=== PATIENT | male | born 1990 | race American Indian/Alaskan Native ===

== ENCOUNTER 2016-10-10 06:41 | Emergency (ER) | payer SELFPAY ==
[2016-10-10] MEDS ORDERED: ONDANSETRON 4 MG ORAL DISINTEGRATING TAB (S0181) As Ordered ONE (07:24)
[2016-10-10] MEDS ORDERED: IPRATROPIUM 0.5MG/ALBUTEROL 2.5MG INH SOL UD 3ML (DUONEB)(J7620) As Ordered ONE ×2 (07:47→07:48)
--- NOTE | 2016-10-10 07:52 | REP ---
Chest x-ray: Two views. History: Cough. Comparison study: No comparisons . Findings: The lungs are well inflated and free of infiltrate. The pleural angles are sharp. The heart size is normal. Pulmonary vasculature is not increased. No significant bony abnormality is seen. Impression: Negative chest x-ray. Signed by Burt Hadley MD 10/10/2016 07:43 A
[2016-10-10] MEDS ORDERED: AUGMENTIN 875 MG TAB As Ordered ONE (08:05)
--- NOTE | 2016-10-10 08:36 | EDDOCDS ---
Nurse's Notes [facility] Name: Kwesi Andrews Age: 25 yrs Sex: Male : 1990 Arrival Date: 10/10/2016 Time: 06:41 Bed I2 / M2 Private MD: Diagnosis: Acute sinusitis;Acute bronchitis Presentation: 10/10 06:57 Presenting complaint: Patient states: has had 'the really bad flu' for 3 to 4 days. kr3 Yesterday began feeling dizzy and light headed. Adult Sepsis Screening: The patient does not have new or worsening altered mentation. Patient's respiratory rate is less than 22. Systolic blood pressure is greater than 100. Patient has a qSOFA score of 0- Negative Sepsis Screen. Suicide/Homicide risk assessment- the patient denies having any suicidal and/or homicidal ideations and does not present with any other emotional, behavioral or mental health complaints. 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 Transition of care: patient was not received from another setting of care. 06:57 Acuity: KEM Level 4 kr3 06:57 Method Of Arrival: Walkin/Carried/Asstd kr3 Triage Assessment: 06:58 General: Appears in no apparent distress, comfortable, Behavior is cooperative. Pain: kr3 Location: all over body Pain currently is 7 out of 10 on a pain scale. Pt Declines HIV testing. EENT: Reports nasal congestion. Respiratory: Reports cough that is. GI: Reports cramping, nausea, vomiting. Derm: Skin is normal. Historical: - Allergies: no known allergies; - Home Meds: 1. none - PMHx: none; - PSHx: none; - Social history: Smoking status: Patient uses tobacco products, current every day smoker. No barriers to communication noted, The patient speaks fluent Indian, Speaks appropriately for age. - Family history: Not pertinent. - : The pt / caregiver states he / she is not on anticoagulants. Home medication list is obtained from the patient. - Exposure Risk Screening:: None identified. Screenin:14 Screening information is obtained from the patient. Fall risk: No risks identified. js13 Assistance ADL's: requires no assistance with activities of daily living. Abuse/DV Screen: The patient / caregiver reports he/she is: not in a situation that causes fear, pain or injury. Nutritional screening: No deficits noted. Advance Directives: There is no active DNR order. home support is adequate. Assessment: 07:15 General: Appears in no apparent distress, Behavior is appropriate for age, cooperative. js13 Pain: Denies pain. Neurological: Level of Consciousness is awake, alert. Respiratory: Airway is patent Respiratory effort is even, unlabored, Respiratory pattern is regular, symmetrical. Derm: Skin is pink, warm & dry. 08:34 Reassessment: Patient appears in no apparent distress at this time. Patient states kr3 feeling better. Respiratory: Respiratory effort is even, unlabored. Vital Signs: 06:58 BP 154 / 85; Pulse 69; Resp 16; Temp 98.3(O); Pulse Ox 98% on R/A; Weight 113.4 kg (R); kr3 Height 5 ft. 10 in. (177.80 cm) (R); 08:33 BP 179 / 84; Pulse 78; Resp 16; Temp 96.9(O); Pulse Ox 96% on R/A; kr3 06:58 Body Mass Index 35.87 (113.40 kg, 177.80 cm) kr3 Vitals: 06:58 Log In Time: October 10, 2016 at 06:36. kr3 07:14 Strep Screen is obtained and tested: Negative, a GATSNEG culture is ordered in [facility] and sent. ED Course: 06:42 Patient visited by Christy Fierro. gjb 06:42 Patient moved to Waiting gjb 06:58 Triage Initiated kr3 07:02 Patient moved to I2 / M2 kr3 07:06 [facility] ef1 07:06 Mary Rodríguez MD is Attending Physician. ef1 07:06 Patient visited by Jo Lu PA-C. ef1 07:07 -Influenza A&B Rapid Antigen - Nose Sent. js13 07:14 The patient / caregiver is instructed regarding the plan of care and ED course. js13 07:14 No IV's were initiated during this patient's visit. No procedures done that require js13 assistance. 07:16 Patient visited by Elsy Suárez RN. js13 07:16 Pt greeted and oriented to ED. Patient advised of names of staff involved in care, jam1 location of call darnell, wait times and NPO status. Patient has correct armband on for positive identification. Bed in low position. Call light in reach. Side rails up X 1. Door closed. 07:17 GATS (NEGATIVE STREP SCREEN) Sent. js13 07:40 Patient visited by Jo Lu PA-C. ef1 08:17 Chest, 2 View (pa\E\lat) Returned. EDMS 08:18 Patient visited by Jo Lu PA-C. ef1 08:27 [facility] is Referral Physician. ef1 Administered Medications: 07:25 Drug: Ondansetron ODT 4 mg [ondansetron 4 mg disintegrating tablet (1 tabs)] Route: PO; js13 07:46 Drug: Albuterol-Ipratropium 1 neb [ipratropium-albuterol 0.5 mg-3 mg(2.5 mg base)/3 mL ac1 nebulization soln (1 neb)] Route: Nebulizer; 07:55 Follow up: bs clear ac1 07:57 Drug: Albuterol-Ipratropium 1 neb [ipratropium-albuterol 0.5 mg-3 mg(2.5 mg base)/3 mL ac1 nebulization soln (1 neb)] Route: Nebulizer; 08:02 Follow up: bs clear ac1 08:10 Drug: Albuterol-Ipratropium 1 neb [ipratropium-albuterol 0.5 mg-3 mg(2.5 mg base)/3 mL ac1 nebulization soln (1 neb)] Route: Nebulizer; 08:14 Follow up: bs clear ac1 08:13 Drug: Amoxicillin-Clavulanate 1 tabs [amoxicillin 875 mg-potassium clavulanate 125 mg js13 tablet (1 tabs)] Route: PO; Intake: RT: 07:49 Initial Med Neb Given as ordered Patient was instructed and evaluated on procedure. ac1 07:54 Respiratory: Breath sounds are clear bilaterally. ac1 08:04 Subsequent Med Neb Given as ordered. ac1 08:15 Respiratory: Breath sounds are clear bilaterally. ac1 Order Results: Lab Order: -Influenza A&B Rapid Antigen - Nose; SPEC'M 10/10/16 07:06 Test: INFLUENZA A RAPID SCR by ICA; Value: INFLUENZA A RESULTS NEGATIVE; Status: F Test: INFLUENZA A RAPID SCR by ICA; Value: Comments:; Status: F Test: INFLUENZA B RAPID SCR by ICA; Value: INFLUENZA B RESULTS NEGATIVE; Status: F Test Note: ; The Influenza test is a direct rapid immunoassay for the qualitative detection of Influenza viral antigen. Cell culture (Viral Culture) testing should be considered to confirm NEGATIVE results and to assist in detecting other viruses that can provide similar clinical symptoms. Please contact the lab within 24 hours ([phone]) if confirmatory testing is desired. Radiology Order: Chest, 2 View (pa\E\lat) Test: Chest, 2 View (pa\E\lat) REASON FOR EXAMINATION: Cough; Chest x-ray: Two views.; ; History: Cough.; ; Comparison study: No comparisons .; ; Findings: The lungs are well inflated and free of infiltrate. The pleural; angles are sharp. The heart size is normal. Pulmonary vasculature is not; increased. No significant bony abnormality is seen.; ; Impression:; ; Negative chest x-ray.; ; ; Signed by; Burt Hadley MD 10/10/2016 07:43 A; Outcome: 08:27 Discharge ordered by Provider. ef1 08:34 Discharge Assessment: patient administered narcotics - no. The following High Risk kr3 Discharge criteria are identified: None. Discharged to home ambulatory. Condition: stable. Discharge instructions given to patient, Instructed on discharge instructions, follow up and referral plans. medication usage, Demonstrated understanding of instructions, medications, Pt was receptive of discharge instructions/ teaching. Prescriptions given X 4. No special radiology studies were completed. Property sent home with patient. 08:34 Patient left the ED. kr3 Signatures: Dispatcher [employer] EDMS Eva Barron, LATHE OPERATOR CONTACT LENS LATHE OPERATOR CONTACT LENS jam1 Kaci Overton,RT RT ac1 Alexa Castrejon,RN RN kr3 Jo Lu, PA-C PA-C ef1 Elsy Suárez,RN RN js13 Christy Fierro Corrections: (The following items were deleted from the chart) 07:58 07:54 Initial Med Neb Given as ordered Patient was instructed and evaluated on ac1 procedure ac1 MTDD
--- NOTE | 2016-10-10 08:36 | EDDOCDS ---
Physician Documentation [facility] Name: Kwesi Andrews Age: 25 yrs Sex: Male : 1990 Arrival Date: 10/10/2016 Time: 06:41 Bed I2 / M2 Private MD: Disposition: 10/10/16 08:27 Discharged to Home/Self Care. Impression: Acute sinusitis, Acute bronchitis. - Condition is Stable. - Discharge Instructions: Sinusitis, Kpdb-[id number], Acute Bronchitis, Piyd-zw-Mamz. - Prescriptions for Augmentin 875- 125 mg Oral Tablet - take 1 tablet by ORAL route every 12 hours for 10 days; 20 tablet. Ibuprofen 800 mg Oral Tablet - take 1 tablet by ORAL route every 8 hours As needed take with food; 30 tablet. Prednisone 20 mg Oral Tablet - take 3 tablet by ORAL route once daily for 5 days; 15 tablet. Claritin 10 mg Oral Tablet - take 1 tablet by ORAL route once daily As needed; 30 tablet. Mucinex 600 mg - take 1 tablet by ORAL route 2 times per day; 30 tablet. Albuterol Sulfate 90 mcg/actuation Inhalation HFA Aerosol Inhaler - inhale 2 puff by INHALATION route every 4 hours As needed; 1 Inhaler. - Referral List Call for Appointment, Medication Reconciliation, Local Pharmacy Hours form. - [facility] ; When: 1 - 2 days; Reason: Recheck today's complaints, Continuance of care. Follow up: Emergency Department; Reason: Worsening of conditions. - Problem is new. - Symptoms have improved. Historical: - Allergies: no known allergies; - Home Meds: 1. none - PMHx: none; - PSHx: none; - Social history: Smoking status: Patient uses tobacco products, current every day smoker. No barriers to communication noted, The patient speaks fluent Croatian, Speaks appropriately for age. - Family history: Not pertinent. - : The pt / caregiver states he / she is not on anticoagulants. Home medication list is obtained from the patient. - Exposure Risk Screening:: None identified. Vital Signs: 10/10 06:58 BP 154 / 85; Pulse 69; Resp 16; Temp 98.3(O); Pulse Ox 98% on R/A; Weight 113.4 kg / kr3 250 lbs (R); Height 5 ft. 10 in. (177.80 cm) (R); 08:33 BP 179 / 84; Pulse 78; Resp 16; Temp 96.9(O); Pulse Ox 96% on R/A; kr3 06:58 Body Mass Index 35.87 (113.40 kg, 177.80 cm) kr3 MDM: 07:05 -Influenza A&B Rapid Antigen - Nose Ordered. EDMS 07:06 Strep Screen, Nursing ordered. ef1 07:15 GATS (NEGATIVE STREP SCREEN) Ordered. EDMS 07:23 Ondansetron ODT Oral Disintegrating Tablet 4 mg PO once ordered. ef1 07:23 Albuterol-Ipratropium 1 neb Nebulizer every 20 minutes x3 ordered. ef1 07:23 Call Respiratory ordered. ef1 07:23 Chest, 2 View (pa\E\lat) Ordered. EDMS 07:23 Call Respiratory complete. js13 07:37 Financial registration complete. lg 07:40 -Influenza A&B Rapid Antigen - Nose Reviewed. ef1 07:55 Amoxicillin-Clavulanate 875 mg 1 tabs PO once ordered. ef1 Administered Medications: 07:25 Drug: Ondansetron ODT 4 mg [ondansetron 4 mg disintegrating tablet (1 tabs)] Route: PO; js13 07:46 Drug: Albuterol-Ipratropium 1 neb [ipratropium-albuterol 0.5 mg-3 mg(2.5 mg base)/3 mL ac1 nebulization soln (1 neb)] Route: Nebulizer; 07:55 Follow up: bs clear ac1 07:57 Drug: Albuterol-Ipratropium 1 neb [ipratropium-albuterol 0.5 mg-3 mg(2.5 mg base)/3 mL ac1 nebulization soln (1 neb)] Route: Nebulizer; 08:02 Follow up: bs clear ac1 08:10 Drug: Albuterol-Ipratropium 1 neb [ipratropium-albuterol 0.5 mg-3 mg(2.5 mg base)/3 mL ac1 nebulization soln (1 neb)] Route: Nebulizer; 08:14 Follow up: bs clear ac1 08:13 Drug: Amoxicillin-Clavulanate 1 tabs [amoxicillin 875 mg-potassium clavulanate 125 mg js13 tablet (1 tabs)] Route: PO; Signatures: Dispatcher [employer] Jerry Ricketts, Jamar Reg lg Alexa Castrejon,RN RN kr3 Jo Lu PA-C PA-C ef1 Elsy Suárez RN RN js13 Kaci Overton RT ac1 MTDD
--- NOTE | 2016-10-12 09:35 | EDDOCDS ---
Physician Documentation [facility] Name: Kwesi Andrews Age: 25 yrs Sex: Male : 1990 Arrival Date: 10/10/2016 Time: 06:41 Bed I2 / M2 Private MD: Disposition: 10/10/16 08:27 Discharged to Home/Self Care. Impression: Acute sinusitis, Acute bronchitis. - Condition is Stable. - Discharge Instructions: Sinusitis, Pqfr-nf-Iqyj, Acute Bronchitis, Xqos-ys-Uonk. - Prescriptions for Augmentin 875- 125 mg Oral Tablet - take 1 tablet by ORAL route every 12 hours for 10 days; 20 tablet. Ibuprofen 800 mg Oral Tablet - take 1 tablet by ORAL route every 8 hours As needed take with food; 30 tablet. Prednisone 20 mg Oral Tablet - take 3 tablet by ORAL route once daily for 5 days; 15 tablet. Claritin 10 mg Oral Tablet - take 1 tablet by ORAL route once daily As needed; 30 tablet. Mucinex 600 mg - take 1 tablet by ORAL route 2 times per day; 30 tablet. Albuterol Sulfate 90 mcg/actuation Inhalation HFA Aerosol Inhaler - inhale 2 puff by INHALATION route every 4 hours As needed; 1 Inhaler. - Referral List Call for Appointment, Medication Reconciliation, Local Pharmacy Hours form. - [facility]: [facility] ; When: 1 - 2 days; Reason: Recheck today's complaints, Continuance of care. Follow up: Emergency Department; Reason: Worsening of conditions. - Problem is new. - Symptoms have improved. Historical: - Allergies: no known allergies; - Home Meds: 1. none - PMHx: none; - PSHx: none; - Social history: Smoking status: Patient uses tobacco products, current every day smoker. No barriers to communication noted, The patient speaks fluent Azeri, Speaks appropriately for age. - Family history: Not pertinent. - : The pt / caregiver states he / she is not on anticoagulants. Home medication list is obtained from the patient. - Exposure Risk Screening:: None identified. Vital Signs: 10/10 06:58 BP 154 / 85; Pulse 69; Resp 16; Temp 98.3(O); Pulse Ox 98% on R/A; Weight 113.4 kg / kr3 250 lbs (R); Height 5 ft. 10 in. (177.80 cm) (R); 08:33 BP 179 / 84; Pulse 78; Resp 16; Temp 96.9(O); Pulse Ox 96% on R/A; kr3 06:58 Body Mass Index 35.87 (113.40 kg, 177.80 cm) kr3 MDM: 07:05 -Influenza A&B Rapid Antigen - Nose Ordered. EDMS 07:06 Strep Screen, Nursing ordered. ef1 07:15 GATS (NEGATIVE STREP SCREEN) Ordered. EDMS 07:23 Ondansetron ODT Oral Disintegrating Tablet 4 mg PO once ordered. ef1 07:23 Albuterol-Ipratropium 1 neb Nebulizer every 20 minutes x3 ordered. ef1 07:23 Call Respiratory ordered. ef1 07:23 Chest, 2 View (pa\E\lat) Ordered. EDMS 07:23 Call Respiratory complete. js13 07:37 Financial registration complete. lg 07:40 -Influenza A&B Rapid Antigen - Nose Reviewed. ef1 07:55 Amoxicillin-Clavulanate 875 mg 1 tabs PO once ordered. ef1 08:46 [facility] [place] Payment Agreement was scanned into [employer] and attached to record. lg 12:39 T-Sheet-- Draft Copy was scanned into [employer] and attached to record. klr 14:09 Radiology Report was scanned into [employer] and attached to record. gb Administered Medications: 07:25 Drug: Ondansetron ODT 4 mg [ondansetron 4 mg disintegrating tablet (1 tabs)] Route: PO; js13 07:46 Drug: Albuterol-Ipratropium 1 neb [ipratropium-albuterol 0.5 mg-3 mg(2.5 mg base)/3 mL ac1 nebulization soln (1 neb)] Route: Nebulizer; 07:55 Follow up: bs clear ac1 07:57 Drug: Albuterol-Ipratropium 1 neb [ipratropium-albuterol 0.5 mg-3 mg(2.5 mg base)/3 mL ac1 nebulization soln (1 neb)] Route: Nebulizer; 08:02 Follow up: bs clear ac1 08:10 Drug: Albuterol-Ipratropium 1 neb [ipratropium-albuterol 0.5 mg-3 mg(2.5 mg base)/3 mL ac1 nebulization soln (1 neb)] Route: Nebulizer; 08:14 Follow up: bs clear ac1 08:13 Drug: Amoxicillin-Clavulanate 1 tabs [amoxicillin 875 mg-potassium clavulanate 125 mg js13 tablet (1 tabs)] Route: PO; Signatures: Dispatcher [employer] EDMS Leighann Stephen, Reg Reg gb Jerry Whitehead, Reg Reg lg Alexa Castrejon,RN RN kr3 Jo Lu, PA-C PA-C ef1 Elsy Suárez RN RN js13 Stella Sood klr Kaci Overton RT ac1 The chart was reviewed and I authenticate all verbal orders and agree with the evaluation and treatment provided.Attachments: 08:46 [facility] [place] Payment Agreement lg 12:39 T-Sheet-- Draft Copy klr Chart Complete MTDD
--- NOTE | 2016-10-12 09:35 | EDDOCDS ---
[facility]ation [facility] Name: Kwesi Andrews Age: 25 yrs Sex: Male : 1990 Arrival Date: 10/10/2016 Time: 06:41 Bed I2 / M2 Private MD: Disposition: 10/10/16 08:27 Discharged to Home/Self Care. Impression: Acute sinusitis, Acute bronchitis. - Condition is Stable. - Discharge Instructions: Sinusitis, Uqum-lp-Hxub, Acute Bronchitis, Spkr-tz-Uota. - Prescriptions for Augmentin 875- 125 mg Oral Tablet - take 1 tablet by ORAL route every 12 hours for 10 days; 20 tablet. Ibuprofen 800 mg Oral Tablet - take 1 tablet by ORAL route every 8 hours As needed take with food; 30 tablet. Prednisone 20 mg Oral Tablet - take 3 tablet by ORAL route once daily for 5 days; 15 tablet. Claritin 10 mg Oral Tablet - take 1 tablet by ORAL route once daily As needed; 30 tablet. Mucinex 600 mg - take 1 tablet by ORAL route 2 times per day; 30 tablet. Albuterol Sulfate 90 mcg/actuation Inhalation HFA Aerosol Inhaler - inhale 2 puff by INHALATION route every 4 hours As needed; 1 Inhaler. - Referral List Call for Appointment, Medication Reconciliation, Local Pharmacy Hours form. - [facility]: [facility] ; When: 1 - 2 days; Reason: Recheck today's complaints, Continuance of care. Follow up: Emergency Department; Reason: Worsening of conditions. - Problem is new. - Symptoms have improved. Historical: - Allergies: no known allergies; - Home Meds: 1. none - PMHx: none; - PSHx: none; - Social history: Smoking status: Patient uses tobacco products, current every day smoker. No barriers to communication noted, The patient speaks fluent Sinhala, Speaks appropriately for age. - Family history: Not pertinent. - : The pt / caregiver states he / she is not on anticoagulants. Home medication list is obtained from the patient. - Exposure Risk Screening:: None identified. Vital Signs: 10/10 06:58 BP 154 / 85; Pulse 69; Resp 16; Temp 98.3(O); Pulse Ox 98% on R/A; Weight 113.4 kg / kr3 250 lbs (R); Height 5 ft. 10 in. (177.80 cm) (R); 08:33 BP 179 / 84; Pulse 78; Resp 16; Temp 96.9(O); Pulse Ox 96% on R/A; kr3 06:58 Body Mass Index 35.87 (113.40 kg, 177.80 cm) kr3 MDM: 07:05 -Influenza A&B Rapid Antigen - Nose Ordered. EDMS 07:06 Strep Screen, Nursing ordered. ef1 07:15 GATS (NEGATIVE STREP SCREEN) Ordered. EDMS 07:23 Ondansetron ODT Oral Disintegrating Tablet 4 mg PO once ordered. ef1 07:23 Albuterol-Ipratropium 1 neb Nebulizer every 20 minutes x3 ordered. ef1 07:23 Call Respiratory ordered. ef1 07:23 Chest, 2 View (pa\E\lat) Ordered. EDMS 07:23 Call Respiratory complete. js13 07:37 Financial registration complete. lg 07:40 -Influenza A&B Rapid Antigen - Nose Reviewed. ef1 07:55 Amoxicillin-Clavulanate 875 mg 1 tabs PO once ordered. ef1 08:46 [facility] [place] Payment Agreement was scanned into [employer] and attached to record. lg 12:39 T-Sheet-- Draft Copy was scanned into [employer] and attached to record. klr 14:09 Radiology Report was scanned into [employer] and attached to record. gb Administered Medications: 07:25 Drug: Ondansetron ODT 4 mg [ondansetron 4 mg disintegrating tablet (1 tabs)] Route: PO; js13 07:46 Drug: Albuterol-Ipratropium 1 neb [ipratropium-albuterol 0.5 mg-3 mg(2.5 mg base)/3 mL ac1 nebulization soln (1 neb)] Route: Nebulizer; 07:55 Follow up: bs clear ac1 07:57 Drug: Albuterol-Ipratropium 1 neb [ipratropium-albuterol 0.5 mg-3 mg(2.5 mg base)/3 mL ac1 nebulization soln (1 neb)] Route: Nebulizer; 08:02 Follow up: bs clear ac1 08:10 Drug: Albuterol-Ipratropium 1 neb [ipratropium-albuterol 0.5 mg-3 mg(2.5 mg base)/3 mL ac1 nebulization soln (1 neb)] Route: Nebulizer; 08:14 Follow up: bs clear ac1 08:13 Drug: Amoxicillin-Clavulanate 1 tabs [amoxicillin 875 mg-potassium clavulanate 125 mg js13 tablet (1 tabs)] Route: PO; Signatures: Dispatcher [employer] EDMS Leighann Stephen, Reg Reg gb Jerry Whitehead, Reg Reg lg Alexa Castrejon,RN RN kr3 Jo Lu, PA-C PA-C ef1 Elsy Suárez RN RN js13 Stella Sood klr Kaci Overton RT ac1 The chart was reviewed and I authenticate all verbal orders and agree with the evaluation and treatment provided.Attachments: 08:46 [facility] [place] Payment Agreement lg 12:39 T-Sheet-- Draft Copy klr Chart Complete MTDD
--- NOTE | 2016-10-12 09:35 | EDDOCDS ---
Nurse's Notes [facility] Name: Kwesi Andrews Age: 25 yrs Sex: Male : 1990 Arrival Date: 10/10/2016 Time: 06:41 Bed I2 / M2 Private MD: Diagnosis: Acute sinusitis;Acute bronchitis Presentation: 10/10 06:57 Presenting complaint: Patient states: has had 'the really bad flu' for 3 to 4 days. kr3 Yesterday began feeling dizzy and light headed. Adult Sepsis Screening: The patient does not have new or worsening altered mentation. Patient's respiratory rate is less than 22. Systolic blood pressure is greater than 100. Patient has a qSOFA score of 0- Negative Sepsis Screen. Suicide/Homicide risk assessment- the patient denies having any suicidal and/or homicidal ideations and does not present with any other emotional, behavioral or mental health complaints. Status: Patient is not a media services director or dependent. Transition of care: patient was not received from another setting of care. 06:57 Acuity: KEM Level 4 kr3 06:57 Method Of Arrival: Walkin/Carried/Asstd kr3 Triage Assessment: 06:58 General: Appears in no apparent distress, comfortable, Behavior is cooperative. Pain: kr3 Location: all over body Pain currently is 7 out of 10 on a pain scale. Pt Declines HIV testing. EENT: Reports nasal congestion. Respiratory: Reports cough that is. GI: Reports cramping, nausea, vomiting. Derm: Skin is normal. Historical: - Allergies: no known allergies; - Home Meds: 1. none - PMHx: none; - PSHx: none; - Social history: Smoking status: Patient uses tobacco products, current every day smoker. No barriers to communication noted, The patient speaks fluent Icelandic, Speaks appropriately for age. - Family history: Not pertinent. - : The pt / caregiver states he / she is not on anticoagulants. Home medication list is obtained from the patient. - Exposure Risk Screening:: None identified. Screenin:14 Screening information is obtained from the patient. Fall risk: No risks identified. js13 Assistance ADL's: requires no assistance with activities of daily living. Abuse/DV Screen: The patient / caregiver reports he/she is: not in a situation that causes fear, pain or injury. Nutritional screening: No deficits noted. Advance Directives: There is no active DNR order. home support is adequate. Assessment: 07:15 General: Appears in no apparent distress, Behavior is appropriate for age, cooperative. js13 Pain: Denies pain. Neurological: Level of Consciousness is awake, alert. Respiratory: Airway is patent Respiratory effort is even, unlabored, Respiratory pattern is regular, symmetrical. Derm: Skin is pink, warm & dry. 08:34 Reassessment: Patient appears in no apparent distress at this time. Patient states kr3 feeling better. Respiratory: Respiratory effort is even, unlabored. Vital Signs: 06:58 BP 154 / 85; Pulse 69; Resp 16; Temp 98.3(O); Pulse Ox 98% on R/A; Weight 113.4 kg (R); kr3 Height 5 ft. 10 in. (177.80 cm) (R); 08:33 BP 179 / 84; Pulse 78; Resp 16; Temp 96.9(O); Pulse Ox 96% on R/A; kr3 06:58 Body Mass Index 35.87 (113.40 kg, 177.80 cm) kr3 Vitals: 06:58 Log In Time: October 10, 2016 at 06:36. kr3 07:14 Strep Screen is obtained and tested: Negative, a GATSNEG culture is ordered in [facility]13 and sent. ED Course: 06:42 Patient visited by Christy Fierro. gjb 06:42 Patient moved to Waiting gjb 06:58 Triage Initiated kr3 07:02 Patient moved to I2 / M2 kr3 07:06 [facility] ef1 07:06 Mary Rodríguez MD is Attending Physician. ef1 07:06 Patient visited by Jo Lu PA-C. ef1 07:07 -Influenza A&B Rapid Antigen - Nose Sent. js13 07:14 The patient / caregiver is instructed regarding the plan of care and ED course. js13 07:14 No IV's were initiated during this patient's visit. No procedures done that require js13 assistance. 07:16 Patient visited by Elsy Suárez RN. js13 07:16 Pt greeted and oriented to ED. Patient advised of names of staff involved in care, jam1 location of call darnell, wait times and NPO status. Patient has correct armband on for positive identification. Bed in low position. Call light in reach. Side rails up X 1. Door closed. 07:17 GATS (NEGATIVE STREP SCREEN) Sent. js13 07:40 Patient visited by Jo Lu PA-C. ef1 08:17 Chest, 2 View (pa\E\lat) Returned. EDMS 08:18 Patient visited by Jo Lu PA-C. ef1 08:27 [facility] is Referral Physician. ef1 08:45 Patient name changed from Kwesi\S\\S\Juliana\S\ to Kwesi\S\Moises\S\Juliana. EDMS 08:46 [facility] Payment Agreement was scanned into [employer] and attached to record. lg 12:39 T-Sheet-- Draft Copy was scanned into [employer] and attached to record. klr 14:09 Radiology Report was scanned into [employer] and attached to record. gb Administered Medications: 07:25 Drug: Ondansetron ODT 4 mg [ondansetron 4 mg disintegrating tablet (1 tabs)] Route: PO; 07:46 Drug: Albuterol-Ipratropium 1 neb [ipratropium-albuterol 0.5 mg-3 mg(2.5 mg base)/3 mL ac1 nebulization soln (1 neb)] Route: Nebulizer; 07:55 Follow up: bs clear ac1 07:57 Drug: Albuterol-Ipratropium 1 neb [ipratropium-albuterol 0.5 mg-3 mg(2.5 mg base)/3 mL ac1 nebulization soln (1 neb)] Route: Nebulizer; 08:02 Follow up: bs clear ac1 08:10 Drug: Albuterol-Ipratropium 1 neb [ipratropium-albuterol 0.5 mg-3 mg(2.5 mg base)/3 mL ac1 nebulization soln (1 neb)] Route: Nebulizer; 08:14 Follow up: bs clear ac1 08:13 Drug: Amoxicillin-Clavulanate 1 tabs [amoxicillin 875 mg-potassium clavulanate 125 mg js13 tablet (1 tabs)] Route: PO; Intake: RT: 07:49 Initial Med Neb Given as ordered Patient was instructed and evaluated on procedure. ac1 07:54 Respiratory: Breath sounds are clear bilaterally. ac1 08:04 Subsequent Med Neb Given as ordered. ac1 08:15 Respiratory: Breath sounds are clear bilaterally. ac1 Order Results: Lab Order: -Influenza A&B Rapid Antigen - Nose; SPEC'M 10/10/16 07:06 Test: INFLUENZA A RAPID SCR by ICA; Value: INFLUENZA A RESULTS NEGATIVE; Status: F Test: INFLUENZA A RAPID SCR by ICA; Value: Comments:; Status: F Test: INFLUENZA B RAPID SCR by ICA; Value: INFLUENZA B RESULTS NEGATIVE; Status: F Test Note: ; The Influenza test is a direct rapid immunoassay for the qualitative detection of Influenza viral antigen. Cell culture (Viral Culture) testing should be considered to confirm NEGATIVE results and to assist in detecting other viruses that can provide similar clinical symptoms. Please contact the lab within 24 hours ([phone]) if confirmatory testing is desired. Lab Order: GATS (NEGATIVE STREP SCREEN); SPEC'M 10/10/16 07:16 Test: GATS CULTURE (NEG STREP SCR); Value: GATS RESULT NEGATIVE FOR STREP PYOGENES (GROUP A); Status: F Test: GATS CULTURE (NEG STREP SCR); Value: <EXTERNAL COMMENT eCWMed> FULL REPORT IN LAB NOTES (eCW and Medent).; Status: F Radiology Order: Chest, 2 View (pa\E\lat) Test: Chest, 2 View (pa\E\lat) REASON FOR EXAMINATION: Cough; Chest x-ray: Two views.; ; History: Cough.; ; Comparison study: No comparisons .; ; Findings: The lungs are well inflated and free of infiltrate. The pleural; angles are sharp. The heart size is normal. Pulmonary vasculature is not; increased. No significant bony abnormality is seen.; ; Impression:; ; Negative chest x-ray.; ; ; Signed by; Burt Hadley MD 10/10/2016 07:43 A; Outcome: 08:27 Discharge ordered by Provider. ef1 08:34 Discharge Assessment: patient administered narcotics - no. The following High Risk kr3 Discharge criteria are identified: None. Discharged to home ambulatory. Condition: stable. Discharge instructions given to patient, Instructed on discharge instructions, follow up and referral plans. medication usage, Demonstrated understanding of instructions, medications, Pt was receptive of discharge instructions/ teaching. Prescriptions given X 4. No special radiology studies were completed. Property sent home with patient. 08:34 Patient left the ED. kr3 Signatures: Dispatcher [employer] EDMS Eva Barron, DIRECTOR OF RETAIL MARKETING DIRECTOR OF RETAIL MARKETING jam1 Leighann Stephen, Reg Reg gb VenturaJerry, Reg Reg lg Tian,Kaci,RT RT ac1 Alexa Castrejon,RN RN kr3 Jo Lu, PA-C PA-C Elsy GaleanoRN RN js13 Christy Fierro Kathie klr Corrections: (The following items were deleted from the chart) 07:58 07:54 Initial Med Neb Given as ordered Patient was instructed and evaluated on ac1 procedure ac1 Chart Complete MTDD
== END 2016-10-10 08:34 | disposition home or self-care (01) ==
LOC: M ED 06:41
DX: J01.90 Acute sinusitis, unspecified (principal); J20.9 Acute bronchitis, unspecified; R50.9 Fever, unspecified; F17.200 Nicotine dependence, unspecified, uncomplicated